=== PATIENT | female | born 1955 | race Caucasian/White ===

== ENCOUNTER 2023-10-20 15:48 | Day surgery (SDC) | payer OTHER ==
[2023-10-20] MEDS ORDERED: LIDOCAINE HCL 1% 50 MG/5 ML VL PF IJ ONE (15:49)
--- NOTE | 2023-10-20 18:10 | XRAY ---
6 seconds of fluoroscopy used in surgery for a right intra-articular knee injection.
--- NOTE | 2023-10-20 18:11 | XRAY ---
Indication: Right knee injection. Intraoperative fluoroscopy provided for 6 seconds. Single digital spot image submitted for interpretation demonstrates needle tip projecting over right femur intercondylar notch. Small amount of contrast injected for needle tip placement. Correlate with intraoperative findings/report.
== END 2023-10-20 17:38 | disposition home or self-care (01) ==
LOC: SDC-PAIN 15:48
PROVIDERS: ATTEND Psychiatry & Neurology Pain Medicine
DX: M17.11 Unilateral primary osteoarthritis, right knee (principal); R73.03 Prediabetes
CPT/HCPCS: 20610; 73560; 77002; 82947; J2001; Q9966

== ENCOUNTER 2023-10-27 16:20 | Day surgery (SDC) | payer OTHER ==
[2023-10-27] MEDS ORDERED: SYNVISC 16 MG/2 ML SYRINGE IU ONE (16:21)
[2023-10-27] MEDS ORDERED: LIDOCAINE HCL 1% 50 MG/5 ML VL PF IJ ONE (16:21)
--- NOTE | 2023-10-27 20:30 | XRAY ---
Indication: Right knee injection. Intraoperative fluoroscopy provided for 9 seconds. Single digital spot image submitted for interpretation demonstrates needle tip projecting over the right femur intercondylar notch. Small amount of contrast injected for needle tip placement. Correlate with intraoperative findings/report.
--- NOTE | 2023-10-28 09:17 | XRAY ---
9 seconds of fluoroscopy was used in surgery for a right intra-articular knee injection.
== END 2023-10-27 17:50 | disposition home or self-care (01) ==
LOC: SDC-PAIN 16:20
PROVIDERS: ATTEND Psychiatry & Neurology Pain Medicine
DX: M17.11 Unilateral primary osteoarthritis, right knee (principal); R73.03 Prediabetes
CPT/HCPCS: 20610; 73560; 77002; 82947; J2001; J7325; Q9966